=== PATIENT | female | born 1950 | race African-American/Black ===

== ENCOUNTER 2021-02-17 11:54 | Emergency (ER) | payer MEDICARE, MEDICAID ==
[~2021-02-17] VITALS: Ht 149.9 cm; Wt 63.0 kg
[2021-02-17] MEDS ORDERED: ACETAMINOPHEN WITH CODEINE 300/30MG TABLET PO STA (12:14)
[2021-02-17] MEDS ORDERED: T3 PO (13:09)
[2021-02-17 14:18] VITALS: BP 144/68
== END 2021-02-17 14:19 | disposition home or self-care (01) ==
LOC: ER 11:54 → EDBD 11:54 → ER 14:19
DX: M25.551 Pain in right hip (principal); V49.49XA Driver injured in collision with other motor vehicles in traffic accident, initial encounter; Y93.89 Activity, other specified; Y92.89 Other specified places as the place of occurrence of the external cause; Y99.8 Other external cause status; Z98.890 Other specified postprocedural states
CPT/HCPCS: 73502; 99283